=== PATIENT | female | born 1980 | race Two or more races ===

== ENCOUNTER 2016-11-22 13:35 | Emergency (ER) | payer OTHER ==
--- NOTE | ~2016-11-22 | CR285 ---
[facility] A Service of [facility] & [facility] RADIOLOGY TEXT RESULTS PATIENT: DONATO ESCOBEDO LOCATION: [facility] : 84 UNIT #: [id number] AGE: [address]: Lane Penny MD SEX: F ORDER DR: [id number] [facility] [address] [facility]. [place], [place] [address] [id number] MR#: [id number] Acc #: [id number] NAME: DONATO ESCOBEDO : 1980 SEX: F STUDY DATE/TIME: 11/22/2016 1326 UNIT: [facility] ROOM: STUDY DESCRIPTION: CR Wrist W Navicular Min 3 Lt Attending Physician: Lane Penny M.D. Ordering Physician: Lane Penny M.D. Primary Care Physician: Cary Nathan Aprn MEDICAL IMAGING REPORT This report is preliminary unless electronic signature is present EXAM Left wrist with navicular view 11/22/2016 1326 hours HISTORY Pain in both wrists diffusely for 1 month with recent fall 2 days ago and increasing pain. COMPARISON None. FINDINGS AP, lateral and oblique views were performed with an additional AP ulnarly deviated view. The overall bone density is normal. The distal radius and ulna are intact. There is no fracture, joint space loss or spurring. There is a small benign cyst in the lunate. IMPRESSION Negative left wrist. Dictated by... Edel Parson M.D. THIS IS AN ELECTRONICALLY VERIFIED REPORT Edel Parson M.D. at 11/22/2016 5:28 PM Belle TD: 11/22/2016 15:03 JOB #: [id number] MEDICAL IMAGING REPORT Page 1 of 1 COPY
--- NOTE | ~2016-11-22 | CR286 ---
[facility] A Service of [facility] RADIOLOGY TEXT RESULTS PATIENT: DONATO ESCOBEDO LOCATION: [facility] : 84 UNIT #: [id number] AGE: [address]: Lane Penny MD SEX: F ORDER DR: [id number] [place] [id number] [facility]. [place], [place] [address] [id number] E MR#: [id number] Acc #: [id number] NAME: DONATO ESCOBEDO : 1980 SEX: F STUDY DATE/TIME: 11/22/2016 13:28 UNIT: [facility] ROOM: STUDY DESCRIPTION: CR Wrist W Navicular Min 3 Rt Attending Physician: Lane Penny M.D. Ordering Physician: Lane Penny M.D. Primary Care Physician: Cary Nathan Aprn MEDICAL IMAGING REPORT This report is preliminary unless electronic signature is present EXAM Right wrist with navicular view, 11/22/2016 13:28 hours HISTORY 1-month history of bilateral wrist pain with fall 2 days ago and worsening bilateral wrist pain. COMPARISON None FINDINGS AP, lateral and oblique views and an ulnarly deviated AP view were performed. The overall bone density is normal. There is no fracture or dislocation. There is a small bone cyst seen in the mid body of the scaphoid and in the proximal aspect of the capitate. No definite erosions. IMPRESSION No fracture, dislocation or erosive change. There is a small cyst seen in the scaphoid and the capitate. Dictated by... Edel Parson M.D. THIS IS AN ELECTRONICALLY VERIFIED REPORT Edel Parson M.D. at 11/22/2016 5:28 PM RODOLFO/idalia TD: 11/22/2016 15:02 JOB #: [id number] MEDICAL IMAGING REPORT [facility] A Service [facility] RADIOLOGY TEXT RESULTS PATIENT: DONATO ESCOBEDO LOCATION: [facility] : 84 UNIT #: [id number] AGE: [address]: Lane Penny MD SEX: F ORDER DR: Page 1 of 1 COPY
[2017-04-01] MEDS ORDERED: INSULIN PUMP (07:34)
[2017-04-01] MEDS ORDERED: DORZOLAMIDE HCL (07:42)
[2017-04-01] MEDS ORDERED: LAMOTRIGINE ER100 MG PO (07:43)
[2017-04-01] MEDS ORDERED: INHALER (07:44)
[2017-04-01] MEDS ORDERED: ALLERGY PILL (07:44)
== END 2016-11-22 14:59 | disposition home or self-care (01) ==
LOC: CED 13:35
DX: M77.9 Enthesopathy, unspecified (principal); E11.9 Type 2 diabetes mellitus without complications; G40.909 Epilepsy, unspecified, not intractable, without status epilepticus
CPT/HCPCS: 29125; 73110; 82947; 99284

== ENCOUNTER → 2017-04-01 | Day surgery (SDC) | payer OTHER ==
[~2017-04-01] MED LIST: ALLERGY PILL; DORZOLAMIDE HCL; INHALER; INSULIN PUMP; LAMOTRIGINE ER100 MG PO
--- NOTE | ~2017-04-01 | OR ---
Unit #: [id number] #: [id number] Patient: DONATO ESCOBEDO [id number] [address] [address] [id number] O MR#: [id number] NAME: DONATO ESCOBEDO ROOM: Date of Procedure: 04/01/2017 Admission Date: 04/01/2017 Surgeon: Yusuf Ford M.D. : 1980 Attending Physician: Yusuf Ford M.D. Primary Care Physician: Cary Nathan Aprn OPERATIVE REPORT PROCEDURE PERFORMED Esophagogastroduodenoscopy with biopsies. INDICATIONS FOR PROCEDURE A 36-year-old with epigastric pain, nausea, and vomiting, undergoing evaluation with upper endoscopy. MEDICATIONS Monitored anesthesia. POSTOPERATIVE FINDINGS 1. Normal esophagus. 2. Mild chronic appearing gastritis. Biopsies taken. 3. Normal duodenum and distal duodenum. PLAN Consider gastric emptying scan for further evaluation. Continue with current medication. Follow up on pathology report. DESCRIPTION OF PROCEDURE The patient was explained of the procedure risks and benefits along with risks and benefits of anesthesia. She was brought to the endoscopy room. Propofol anesthesia was given. Bite block was placed. The scope was passed down the mouth into the esophagus, stomach, duodenum, and distal duodenum. Findings as described. Biopsies taken. Gently, I pulled the scope out of the patient's mouth. She tolerated it well. Dictated by... Alan Geol/jennifer TD: 04/01/2017 15:10 JOB #: [id number] Unit #: [id number] #: [id number] Patient: DONATO ESCOBEDO OPERATIVE REPORT Page 1 of 1 X Yusuf Ford MD X PROCEDURE OPERATIVE NOTE
== END | disposition home or self-care (01) ==
LOC: COPS 07:00
DX: K29.50 Unspecified chronic gastritis without bleeding (principal); J45.909 Unspecified asthma, uncomplicated; E11.9 Type 2 diabetes mellitus without complications; Z79.899 Other long term (current) drug therapy; Z96.41 Presence of insulin pump (external) (internal); Z98.890 Other specified postprocedural states
CPT/HCPCS: 82947; 84703; 88305; 88312